=== PATIENT | female | born 1960 | race Two or more races ===

== ENCOUNTER 2024-07-28 09:30 | Day surgery (SDC) | payer MEDICAID, SELFPAY ==
[2024-07-27 12:07] VITALS: BMI 34.7
[2024-07-28] VITALS (9 sets, daily range): BP systolic 103–138; BP diastolic 54–93; PULSE 51–62; RESP 11–19; TEMP 36.3–36.5; O2SAT 92–97; BMI 34.7
[2024-07-28] MEDS: RINGERS LACTATED 1000 ML 1,000 ML 60 ML IV (11:47)
[2024-07-28] MEDS: fentaNYL CIT INJ 50 mCg/ML AMP 2ML (ASD USE ONLY) IVP (11:47)
[2024-07-28] MEDS: DiphenhydrAMINE INJ 50 MG/ML VIAL 25 MG IVP (11:47)
[2024-07-28] MEDS: MIDAZOLAM INJ 1 MG/ML VIAL 2 ML (ASD USE ONLY) 2 MG IVP (11:47)
== END 2024-07-28 12:55 | disposition home or self-care (01) ==
PROVIDERS: PCP Nurse Practitioner Primary Care; Referring Provider Specialist; Visit Provider Specialist
PROC: (CPT 43239; principal; 2024-07-28 09:30)
DX: K21.00 Gastro-esophageal reflux disease with esophagitis, without bleeding (principal); K44.9 Diaphragmatic hernia without obstruction or gangrene
CPT/HCPCS: 43239; J1200; J2250; J3010; J7120